=== PATIENT | male | born 1985 ===

== ENCOUNTER 2018-04-20 11:56 | Emergency (ER) | payer OTHER ==
[2018-04-20 12:36] VITALS: BMI 30.3
[2018-04-20 12:38] VITALS: BP 137/83; PULSE 77; RESP 18; TEMP 98.1; O2SAT 99
--- NOTE | 2018-04-20 12:47 | C.PDOC ---
History Of Present Illness 33 y/o male with no significant PMHx presents to the ED c/o right shoulder pain s/p lifting a heavy object at work 3 days ago. 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 He denies blunt trauma or falls. Pain is worse with movement, specifically internal rotation and abduction. Has not tried any pain medication prior to arrival. Otherwise he denies any numbness or paresthesias. No prior injuries to the shoulder. Time Seen by Provider: 04/20/18 12:35 Chief Complaint (Nursing): Upper Extremity Problem/Injury History Per: Patient History/Exam Limitations: no limitations Onset/Duration Of Symptoms: Days Current Symptoms Are (Timing): Still Present Exacerbating Factor(s): Movement Past Medical History Reviewed: Historical Data, Nursing Documentation, Vital Signs Vital Signs: Last Vital Signs Temp 98.1 F 04/20/18 12:36 Pulse 77 04/20/18 12:36 Resp 18 04/20/18 12:36 BP 137/83 04/20/18 12:36 Pulse Ox 99 04/20/18 12:36 - Medical History PMH: No Chronic Diseases Surgical History: No Surg Hx Family History: States: No Known Family Hx - Social History Hx Alcohol Use: Yes Hx Substance Use: No - Immunization History Hx Tetanus Toxoid Vaccination: No Hx Influenza Vaccination: No Hx Pneumococcal Vaccination: No Review Of Systems Except As Marked, All Systems Reviewed And Found Negative. Constitutional: Negative for: Fever, Chills Eyes: Negative for: Vision Change Cardiovascular: Negative for: Chest Pain, Palpitations, Light Headedness Respiratory: Negative for: Cough, Shortness of Breath Gastrointestinal: Negative for: Nausea, Vomiting, Abdominal Pain Musculoskeletal: Positive for: Shoulder Pain Skin: Negative for: Rash Neurological: Negative for: Weakness, Numbness, Headache, Dizziness Physical Exam - Physical Exam Appears: Well, Non-toxic, No Acute Distress Skin: Normal Color, Warm, Dry Head: Atraumatic, Normacephalic, No Tenderness Eye(s): bilateral: Normal Inspection, PERRL, EOMI Nose: Normal Oral Mucosa: Moist Neck: Normal, Normal ROM, Supple Cardiovascular: Rhythm Regular Respiratory: Normal Breath Sounds Gastrointestinal/Abdominal: Soft, No Tenderness Back: Normal Inspection, No CVA Tenderness, No Vertebral Tenderness, No Paraspinal Tenderness Extremity: Normal ROM (Full active ROM of the right upper extremity, patient has pain on internal rotation and abduction of the right shoulder), Tenderness (tenderness to the posterior aspect of right shoulder, with muscular tenderness over the scapula and under his right arm), Capillary Refill (<2 sec), No Deformity, No Swelling, Other (Neurovascularly intact) Extremity: Right: Normal ROM, Bilateral: Atraumatic, Normal Color And Temperature Pulses: Left Radial: Normal, Right Radial: Normal Neurological/Psych: Oriented x3, Normal Speech, Normal Cognition, Normal Motor, Normal Sensation Gait: Steady ED Course And Treatment O2 Sat by Pulse Oximetry: 99 (RA) Pulse Ox Interpretation: Normal - Other Rad Right shoulder x-ray X-Ray: Read By Radiologist Interpretation: Accession No. : [id number]. Patient Name / ID : HONG ELIAS Q / [id number]. Exam Date : 04/20/2018 12:49:56 ( Approved ). Study Comment : Sex / Age : M / 33Y. Creator : Lidya Mishra MD. Dictator : Lidya Mishra MD. Savings Teller : Continuous Process Tanner Rotary Drum : Lidya Mishra MD. Approver2 : Report Date : 04/20/2018 13:09:31. My Comment : . PROCEDURE: Radiographs of the Right Shoulder. HISTORY: right shoulder pain, trauma 3 days ago, lifting. COMPARISON: None available. FINDINGS: BONES: 15 x 4 mm ossific fragment at the level of the distal right clavicle; avulsion fracture is not excluded. The remainder the visualized osseous structures appear intact. The included underlying ribs appear intact. JOINTS: No acute dislocation. SOFT TISSUES: Soft tissue swelling. No evidence of radiopaque foreign body. IMPRESSION: 15 x 4 mm ossific fragment at the level of the distal right clavicle; avulsion fracture is not excluded. Correlate with physical exam. The remainder the visualized osseous structures appear intact. Soft tissue swelling. Medical Decision Making Medical Decision Making: Plan: --600 mg PO motrin --Lidoderm patch x1 --Right shoulder x-ray Translation provided through nurse Terry to ensure patient understanding. Xray shows possible distal clavicle avulsion fracture, however patient is not tender in the area of suspicion. Xray and case reviewed with ED attending Dr. De Souza, who states abnormality is most likely chronic, advises discharge home with outpatient orthopedic followup. Patient placed in right arm sling. Diagnostic testing results and plan of care discussed with patient. Strict instructions given regarding prescription use, importance of followup, and signs/symptoms to return to ER including worsening pain, numbness, paresthesias, weakness, or any other new/worsening symptoms. Pt verbalized understanding of discussion. Patient is A&Ox3, ambulating with steady gait, with vital signs stable for discharge. Disposition - Disposition Referrals: [facility] [Outside] [facility] [place] [Outside] Eleazar Dhillon MD [Staff Provider] - Disposition: HOME/ ROUTINE Disposition Time: 13:50 Condition: IMPROVED Additional Instructions: Mantener el brazo en cabestrillo hasta el seguimiento. Naproxeno cierra vez al da segn sea necesario para el dolor. [place] lesionada por el hielo [place], no levantar objetos pesados ??o actividades extenuantes Seguimiento con ortopedia en 2 stanley. 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 - Scribe Statement The provider has reviewed the documentation as recorded by the Scribe Sivla Sorenson All medical record entries made by the Scribe were at my direction and personally dictated by me. I have reviewed the chart and agree that the record accurately reflects my personal performance of the history, physical exam, medical decision making, and the department course for this patient. I have also personally directed, reviewed, and agree with the discharge instructions and disposition.
--- NOTE | 2018-04-20 13:13 | RAD ---
PROCEDURE: Radiographs of the Right Shoulder HISTORY: right shoulder pain, trauma 3 days ago, lifting COMPARISON: None available. FINDINGS: BONES: 15 x 4 mm ossific fragment at the level of the distal right clavicle; avulsion fracture is not excluded. The remainder the visualized osseous structures appear intact. The included underlying ribs appear intact. JOINTS: No acute dislocation. SOFT TISSUES: Soft tissue swelling. No evidence of radiopaque foreign body. IMPRESSION: 15 x 4 mm ossific fragment at the level of the distal right clavicle; avulsion fracture is not excluded. Correlate with physical exam. The remainder the visualized osseous structures appear intact. Soft tissue swelling.
[2018-04-20] MEDS ORDERED: Lidocaine 5% Patch TD STA (13:46)
[2018-04-20] MEDS ORDERED: Lidocaine 5% Patch TD ONE (13:55)
== END 2018-04-20 14:07 | disposition home or self-care (01) ==
LOC: C.ER 11:56
DX: S46.911A Strain of unspecified muscle, fascia and tendon at shoulder and upper arm level, right arm, initial encounter (principal); X50.0XXA Overexertion from strenuous movement or load, initial encounter; Y92.89 Other specified places as the place of occurrence of the external cause; Y99.0 Civilian activity done for income or pay